=== PATIENT | female | born 1945 | race Caucasian/White ===

== ENCOUNTER → 2016-09-08 | Outpatient (CLI) | payer MEDICARE, OTHER | END | disposition home or self-care (01) | LOC: CFH 13:13 | PROVIDERS: ATTEND Family Medicine | DX: Z13.820 Encounter for screening for osteoporosis (principal); M85.88 Other specified disorders of bone density and structure, other site | CPT/HCPCS: 77080 ==

== ENCOUNTER → 2018-04-04 | Outpatient (CLI) | payer MEDICARE, OTHER ==
[~2018-04-04] MED LIST: ASPI-496 PO; ATOR20TA PO; BECL10.62 PO; BIOT25005 PO; CETI10CA PO; FLUT16SP NS; FLUT9.9S NS; HYDR25TA11 PO; LEVO100T PO; OMEP-110 PO; VITAMIN D PO
== END | disposition home or self-care (01) ==
LOC: STAR 13:40
PROVIDERS: ATTEND Internal Medicine
DX: Z01.818 Encounter for other preprocedural examination (principal); K31.89 Other diseases of stomach and duodenum
CPT/HCPCS: 93005

== ENCOUNTER 2018-04-09 05:38 | Day surgery (SDC) | payer MEDICARE, OTHER ==
[~2018-04-09] VITALS: Ht 166.4 cm; Wt 99.0 kg
[2018-04-09] MEDS ORDERED: LACTATED RINGERS 1,000 ML IV SCH (06:21)
[2018-04-09 06:24] VITALS: BP 162/100
[2018-04-09] MEDS ORDERED: PROPOFOL 10 MG/ML, 20ML ONE ×2 (07:02→07:58)
[2018-04-09] MEDS ORDERED: ROCURONIUM 10MG/ML,5ML ONE (08:08)
[2018-04-09] MEDS ORDERED: DEXAMETHASONE 4 MG/ML, 1ML ONE ×2 (08:23→08:24)
[2018-04-09] MEDS ORDERED: NEOSTIGMINE 1 MG/ML, 10ML ONE (08:24)
[2018-04-09] MEDS ORDERED: GLYCOPYRROLATE 0.4 MG/2 ML, 2ML ONE (08:24)
[2018-04-09] MEDS ORDERED: ONDANSETRON 2MG/ML, 2ML ONE (08:24)
[2018-04-09] MEDS ORDERED: LABETALOL 5MG/ML, 20ML ONE ×2 (08:36→09:04)
[2018-04-09] MEDS ORDERED: ALBUTEROL/IPRATROPIUM 2.5MG/0.5MG, 3 ML ONE (09:08)
[2018-04-09] MEDS ORDERED: ALBUTEROL SULFATE 2.5 MG/3 ML NPPB PRN (09:30)
[2018-04-09] MEDS ORDERED: LABETALOL 5MG/ML, 20ML IVPush PRN (09:30)
[2018-04-09] MEDS ORDERED: BENZONATATE 100 MG CAPSULE PO PRN (10:30)
== END 2018-04-09 12:30 | disposition home or self-care (01) ==
LOC: OUT 05:38
PROVIDERS: ATTEND Internal Medicine
DX: K31.7 Polyp of stomach and duodenum (principal); K21.9 Gastro-esophageal reflux disease without esophagitis; E78.5 Hyperlipidemia, unspecified; E03.9 Hypothyroidism, unspecified; Z88.1 Allergy status to other antibiotic agents; Z88.2 Allergy status to sulfonamides; Z79.899 Other long term (current) drug therapy; Z79.82 Long term (current) use of aspirin
CPT/HCPCS: 43251; 43254; 43259; 88305; 94640; J1100; J2405; J2704; J2710

== ENCOUNTER → 2020-04-14 | Outpatient (CLI) | payer MEDICARE, OTHER ==
[~2020-04-14] MED LIST changes: -FLUT16SP NS; +FLUT16SP24 NS; +HYDR-826 PO; -HYDR25TA11 PO
== END | disposition home or self-care (01) ==
LOC: CVU 07:32
PROVIDERS: ATTEND Internal Medicine Cardiovascular Disease
DX: I34.8 Other nonrheumatic mitral valve disorders (principal); I11.9 Hypertensive heart disease without heart failure; I25.10 Atherosclerotic heart disease of native coronary artery without angina pectoris
CPT/HCPCS: 93306

== ENCOUNTER 2021-02-24 14:05 | Outpatient (CLI) | payer MEDICARE, OTHER | END 2021-02-24 23:59 | disposition home or self-care (01) | LOC: CFH 14:05 | PROVIDERS: ATTEND Nurse Practitioner Family | DX: R92.1 Mammographic calcification found on diagnostic imaging of breast (principal); N64.4 Mastodynia; N63.0 Unspecified lump in unspecified breast | CPT/HCPCS: 76642; 77062; 77066; G0279 ==